=== PATIENT | female | born 1955 | race Caucasian/White ===

== ENCOUNTER 2023-02-27 08:04 | Emergency (ER) | payer MEDICARE, SELFPAY ==
[2023-02-27 08:11] VITALS: BP 141/75; PULSE 93; RESP 16; TEMP 36.9; O2SAT 100
--- NOTE | 2023-02-27 08:12 | ED.URI ---
HPI - URI/Sore Throat General Chief Complaint: Upper Respiratory Infection Stated Complaint: Congestion Source: patient, RN notes reviewed and old records reviewed Mode of arrival: ambulatory Limitations: no limitations History of Present Illness HPI Narrative: 67 year old female who presents to [facility] with complaints of cough and sinus congestion for 12 days. Patient reports that she has taken her normal Singulair and Zyrtec daily and has been taking Coricidin brand decongestant with no improvement in her symptoms. Patient reports that she had COVID the first part of January and seemed to of recovered from that then proceeded with present symptoms.Patient reports no shortness of breath, respirations lamont and nonlabored,SAO2 100% on room air MD elicited complaint: cough, rhinorrhea, nasal congestion, sinus pain and other (congestion) Pertinent past history: sinusitis, seasonal allergies and immunosuppression Onset (ago): day(s) (12) Severity: moderate Able to tolerate fluids by mouth: Yes Treatments prior to arrival: other (Coricidin HBP, Zyrtec, Singulair) Related Data Home Medications Medication Instructions Recorded Confirmed abatacept 125 mg/mL subcutaneous 125 mg subcut WEEKLY 12/10/21 02/27/23 auto-injector ([employer]) calcium citrate 500 mg-vitamin D3 1 tablet PO DAILY 12/10/21 02/27/23 12.5 mcg (500 unit) chewable tablet cetirizine 10 mg tablet 10 mg PO DAILY 12/10/21 02/27/23 cholecalciferol (vitamin D3) 50 50 mcg PO DAILY 12/10/21 02/27/23 mcg (2,000 unit) capsule (Vitamin D3) folic acid 1 mg tablet 2 mg PO DAILY 12/10/21 02/27/23 gabapentin 300 mg capsule 300 mg PO .COMPLEX 12/10/21 02/27/23 garlic 1,000 mg capsule 1,000 mg PO DAILY 12/10/21 02/27/23 iron 18 mg tablet 18 mg PO DAILY 12/10/21 02/27/23 levothyroxine 75 mcg tablet 75 mcg PO DAILY 12/10/21 02/27/23 (Synthroid) lutein 25 mg-zeaxanthin 5 mg 1 cap PO DAILY 12/10/21 02/27/23 capsule magnesium 250 mg tablet 250 mg PO DAILY 12/10/21 02/27/23 methotrexate sodium 15 mg tablet 15 mg PO WEEKLY 12/10/21 02/27/23 montelukast 10 mg tablet 10 mg PO DAILY 12/10/21 02/27/23 naproxen 500 mg tablet 500 mg PO .COMPLEX 12/10/21 02/27/23 ubrogepant 50 mg tablet (Ubrelvy) 50 mg PO DAILY 12/10/21 02/27/23 zolpidem 10 mg tablet (Ambien) 10 mg PO DAILY 12/10/21 02/27/23 Allergies Allergy/AdvReac Type Severity Reaction Status Date / Time amoxicillin [From Augmentin] Allergy Severe Swelling Verified 02/27/23 08:29 of Lip/Tongue/Throat clavulanic acid Allergy Severe Swelling Verified 02/27/23 08:29 [From Augmentin] of Lip/Tongue/Throat Sulfa (Sulfonamide Allergy Severe Swelling Verified 02/27/23 08:29 Antibiotics) of Lip/Tongue/Throat sumatriptan Allergy Severe Anaphylactic Verified 02/27/23 08:29 Shock acetaminophen [From Vicodin] Allergy Intermediate Nausea and Verified 02/27/23 08:29 Vomiting hydrocodone [From Vicodin] Allergy Intermediate Nausea and Verified 02/27/23 08:29 Vomiting ondansetron [From Zofran] Allergy Intermediate Migraine Verified 02/27/23 08:29 cefadroxil Allergy Mild Rash Verified 02/27/23 08:29 povidone-iodine Allergy Mild Rash Verified 02/27/23 08:29 soap Allergy Unknown Unknown Verified 02/27/23 08:29 codeine AdvReac Mild Nausea and Verified 02/27/23 08:29 Vomiting morphine AdvReac Mild Hypotension Verified 02/27/23 08:29 SUMATRIPTAN SUCCINATE Allergy Severe Anaphylactic Uncoded 02/27/23 08:29 Shock AMOXICILLIN TRIHYDRATE Allergy Mild Rash Uncoded 02/27/23 08:29 CEFADROXIL HYDRATE Allergy Mild Rash Uncoded 02/27/23 08:29 HYDROCODONE BIT Allergy Mild Rash Uncoded 02/27/23 08:29 POTASSIUM CLAVULANATE Allergy Mild Rash Uncoded 02/27/23 08:29 Z PACK Allergy Mild Rash Uncoded 02/27/23 08:29 NASAL SPRAY Allergy Unknown Unknown Uncoded 02/27/23 08:29 ONDANSETRON HCL Allergy Unknown Unknown Uncoded 02/27/23 08:29 Review of Systems Review of Systems: CONSTITUTIONAL: Denies malaise,
== END 2023-02-27 08:40 | disposition home or self-care (01) ==
PROVIDERS: Emergency Provider Registered Nurse; PCP Family Medicine
DX: J01.40 Acute pansinusitis, unspecified (principal); R05.1 Acute cough; E78.5 Hyperlipidemia, unspecified; E03.9 Hypothyroidism, unspecified; M81.0 Age-related osteoporosis without current pathological fracture; M06.9 Rheumatoid arthritis, unspecified; Z85.3 Personal history of malignant neoplasm of breast; Z90.13 Acquired absence of bilateral breasts and nipples; Z86.16 Personal history of COVID-19
CPT/HCPCS: 99213; G0463